=== PATIENT | male | born 1985 | race African-American/Black ===

== ENCOUNTER 2017-11-03 20:35 | Emergency (ER) | payer OTHER ==
[~2017-11-03] VITALS: Ht 170.2 cm; Wt 100.0 kg
[2017-11-03 20:52] VITALS: BP 157/82; PULSE 88; RESP 22; TEMP 98.6; O2SAT 96
[2017-11-03] MEDS ORDERED: methylPREDNISolone SOD SUCC 125 MG/2 ML VIAL IV PUSH ONE (21:30)
[2017-11-03] MEDS ORDERED: SODIUM CHLORIDE 0.9% FLUSH 10 ML FLUSH IVF PRN (21:30)
--- NOTE | 2017-11-03 21:30 | PD ---
HPI Chief Complaint: Respiratory Symptoms Time Seen by Provider: 21:09 Travel History International Travel<30 days: No Contact w/Intl Traveler<30days: No Traveled to known affect area: No History of Present Illness HPI 32 year old male presents to the emergency department for evaluation of chest tightness, SOB that started a couple of hours ago. Patient states he has history of asthma, but states his asthma is "atypical and occurs once every 7 years". Patient states he has not had these symptoms in approximately 7 years. Patient denies any other medical problems and takes no other medications. He states he does not currently have an albuterol inhaler. Patient denies any fevers, chills. No abdominal pain, nausea, vomiting, diarrhea. He denies any recent surgery or travel. No hemoptysis. No leg edema. No history of DVT or PE. No exacerbating or alleviating factors. Moderate severity. PFSH Past Medical History Asthma: Yes Tetanus Vaccination: < 5 Years Influenza Vaccination: No Past Surgical History Surgical History: No Previous Surgery Social History Alcohol Use: No Tobacco Use: No Substance Use: No Allergies-Medications (Allergen,Severity, Reaction): Coded Allergies: No Known Allergies (Unverified , 11/03/17) Reported Meds & Prescriptions Reported Meds & Active Scripts Active No Active Prescriptions or Reported Medications Review of Systems Except as stated in HPI: all other systems reviewed are Neg Physical Exam Narrative GENERAL: Well developed, well nourished male patient, ambulatory and in no acute distress. Afebrile. SKIN: Warm and dry. HEAD: Normocephalic. Atraumatic. EYES: No scleral icterus. No injection or drainage. NECK: Supple, trachea midline. No JVD or lymphadenopathy. CARDIOVASCULAR: Regular rate and rhythm without murmurs, gallops, or rubs. RESPIRATORY: Breath sounds equal bilaterally. No accessory muscle use. Lung sounds diminished throughout. GASTROINTESTINAL: Abdomen soft, non-tender, nondistended. MUSCULOSKELETAL: No cyanosis, or edema. BACK: Nontender without obvious deformity. No CVA tenderness. Data Data Last Documented VS Vital Signs Date Time Temp Pulse Resp B/P (MAP) Pulse Ox O2 Delivery O2 Flow Rate FiO2 11/03/17 21:45 99 Nasal Cannula 2.00 11/03/17 21:44 81 16 11/03/17 20:52 98.6 Orders Orders Complete Blood Count With Diff (11/03/17 21:17) Basic Metabolic Panel (Bmp) (11/03/17 21:17) Magnesium (Mg) (11/03/17 21:17) Ckmb (Isoenzyme) Profile (11/03/17 21:17) Troponin I (11/03/17 21:17) Iv Access Insert/Monitor (11/03/17 21:17) Electrocardiogram (11/03/17 21:17) Ecg Monitoring (11/03/17:) Oximetry (11/03/17 21:) Oxygen Administration (11/03/17 21:17) Chest, Single Ap (11/03/17:17) Sodium Chloride 0.9% Flush (Ns Flush) (11/03/17 21:30) Methylprednisolone So Succ Inj (Solumedr (11/03/17 21:30) Albuterol-Ipratropium Neb (Duoneb Neb) (11/03/17 21:30) CKMB (11/03/17 21:40) CKMB% (11/03/17 21:40) Labs Laboratory Tests Test 11/03/17 21:40 White Blood Count 8.8 TH/MM3 Red Blood Count 5.08 MIL/MM3 Hemoglobin 14.2 GM/DL Hematocrit 40.7 % Mean Corpuscular Volume 80.1 FL Mean Corpuscular Hemoglobin 27.9 PG Mean Corpuscular Hemoglobin Concent 34.8 % Red Cell Distribution Width 12.5 % Platelet Count 361 TH/MM3 Mean Platelet Volume 9.3 FL Neutrophils (%) (Auto) 40.5 % Lymphocytes (%) (Auto) 43.1 % Monocytes (%) (Auto) 7.3 % Eosinophils (%) (Auto) 8.4 % Basophils (%) (Auto) 0.7 % Neutrophils # (Auto) 3.6 TH/MM3 Lymphocytes # (Auto) 3.8 TH/MM3 Monocytes # (Auto) 0.6 TH/MM3 Eosinophils # (Auto) 0.7 TH/MM3 Basophils # (Auto) 0.1 TH/MM3 CBC Comment DIFF FINAL Differential Comment Blood Urea Nitrogen 7 MG/DL Creatinine 1.24 MG/DL Random Glucose 252 MG/DL Calcium Level 8.5 MG/DL Magnesium Level 1.7 MG/DL Sodium Level 137 MEQ/L Potassium Level 3.8 MEQ/L Chloride Level 102 MEQ/L Carbon Dioxide Level 23.9 MEQ/L Anion Gap 11 MEQ/L Estimat Glomerular Filtration Rate 82 ML/MIN Total Creatine Kinase 152 U/L Creatine Kinase MB 0.9 NG/ML Troponin I 0.02 NG/ML MDM Medical Decision Making Medical Screen Exam Complete: Yes Emergency Medical Condition: Yes Medical Record Reviewed: Yes Interpretation(s) chest x-ray - CONCLUSION: No acute disease. Differential Diagnosis asthma exacerbation vs. pneumonia vs. ACS Narrative Course 32 year old male presents to the emergency department for evaluation of shortness of breath, chest tightness for a few hours. EKG, CBC, BMP, Magnesium , CK, Troponin, chest x-ray are ordered and pending. Patient is given duoneb x3 , solumedrol 125 mg IV. EKG shows SR, HR 62, no acute ST changes. CBC shows no acute abnormalities. BMP shows hyperglycemia of 252, no acute abnormalities. CK is 152. Troponin is 0.02. Magnesium is 1.7. Chest x-ray shows no acute disease. Upon re-evaluation, patient states he is feeling much better and chest tightness is gone. Patient will be discharged with a RX for albuterol inhaler and prednisone. He verbalizes agreement and understanding. Diagnosis Primary Impression: Asthma exacerbation Qualified Codes: J45.21 - Mild intermittent asthma with (acute) exacerbation Referrals: Primary Care Physician call for appointment Patient Instructions: Asthma (ED), General Instructions Additional Instructions: Use albuterol inhaler as directed as needed for SOB/wheezing. Take prednisone as directed. Start this tomorrow. Follow up with your primary care physician. Return to the emergency department for any acute, worsening of symptoms. Med/Other Pt SpecificInfo: Prescription(s) given Scripts Prednisone (Prednisone) 20 Mg Tab 40 MG PO DAILY for 4 Days, #8 TAB 0 Refills Prov: Ladan Arce 11/03/17 Albuterol 18 GM Inh (Ventolin Hfa 18 GM Inh) 90 Mcg/Act Aer 1 PUFF INH Q4H Y for SHORTNESS OF BREATH, #1 INHALER 0 Refills Prov: Ladan Arce 11/03/17 Disposition: 01 DISCHARGE HOME Condition: Stable Ladan Arce Nov 03, 2017 21:30
[2017-11-03 21:44] VITALS: PULSE 81; RESP 16; O2SAT 97
[2017-11-03] MEDS: RESP: ALBUTEROL 2.5 MG/IPRATROPIUM 0.5 MG NEB (SCH) INH (21:56)
--- NOTE | 2017-11-03 22:13 | RADRPT ---
EXAM DATE/TIME: 11/03/2017 21:28 [facility] COMPARISON: No previous studies available for comparison. INDICATIONS : Chest tightness and shortness of breath. MEDICAL HISTORY : Asthma. SURGICAL HISTORY : None. ENCOUNTER: Initial ACUITY: 1 day PAIN SCORE: 0/10 LOCATION: Bilateral chest FINDINGS: A single view of the chest demonstrates the lungs to be symmetrically aerated without evidence of mas s, infiltrate or effusion. The cardiomediastinal contours are unremarkable. Osseous structures are intact. CONCLUSION: No acute disease. Luiz Nath MD on November 03, 2017 at 22:10 Board Certified Radiologist. This report was verified electronically.
[2017-11-03 22:25] LABS: AUTOMATED NEUTROPHIL # 3.6 TH/MM3 (1.8-7.7); BASOPHIL # 0.1 TH/MM3 (0-0.2); BASOPHIL % 0.7 % (0.0-2.0); EOSINOPHIL # 0.7 TH/MM3 (0-0.4); EOSINOPHIL % 8.4 % (0.0-4.0); HEMATOCRIT 40.7 % (39.0-51.0); HEMOGLOBIN 14.2 GM/DL (13.0-17.0); LYMPH % 43.1 % (9.0-44.0); LYMPHOCYTE # 3.8 TH/MM3 (1.0-4.8); MEAN CELL VOLUME 80.1 FL (80.0-100.0); MEAN CORPUSCULAR HEMOGLOBIN 27.9 PG (27.0-34.0); MEAN CORPUSCULAR HGB CONC 34.8 % (32.0-36.0); MEAN PLATELET VOLUME 9.3 FL (7.0-11.0); MONO % 7.3 % (0.0-8.0); MONOCYTE # 0.6 TH/MM3 (0-0.9); NEUT % 40.5 % (16.0-70.0); PLATELET COUNT 361 TH/MM3 (150-450); RED BLOOD COUNT 5.08 MIL/MM3 (4.50-5.90); RED CELL DISTRIBUTION WIDTH 12.5 % (11.6-17.2); WHITE BLOOD COUNT 8.8 TH/MM3 (4.0-11.0)
--- NOTE | 2017-11-03 22:35 | PD ---
Physical Exam Narrative I, Dr. Rosenbaum, have reviewed the advance practice practitioner's documentation and am in agreement, met with the patient face to face, made the diagnosis, and the medical decision making was done by me. *My assessment and Findings: Asthma exacerbation vs. pneumonia 32yo M with PMH of asthma here with sob for a few hours. Feels like his asthma. Labs reviewed, no leukocytosis. H/H normal. Glucose mildly elevated at 252. Troponin negative. CXR: Negative. Pt given methylprednisolone and duonebs x3. Pt reevaluated at bedside and is feeling much better. Pt ambulating in the ED without any sob and wants to go home. Lungs are clear. Return precautions given. Data Data Last Documented VS Vital Signs Date Time Temp Pulse Resp B/P (MAP) Pulse Ox O2 Delivery O2 Flow Rate FiO2 11/03/17 21:45 99 Nasal Cannula 2.00 11/03/17 21:44 81 16 11/03/17 20:52 98.6 Orders Orders Complete Blood Count With Diff (11/03/17 21:17) Basic Metabolic Panel (Bmp) (11/03/17 21:17) Magnesium (Mg) (11/03/17 21:17) Ckmb (Isoenzyme) Profile (11/03/17 21:17) Troponin I (11/03/17 21:17) Iv Access Insert/Monitor (11/03/17 21:17) Electrocardiogram (11/03/17 21:17) Ecg Monitoring (11/03/17 21:17) Oximetry (11/03/17 21:17) Oxygen Administration (11/03/17 21:17) Chest, Single Ap (11/03/17 21:17) Sodium Chloride 0.9% Flush (Ns Flush) (11/03/17 21:30) Methylprednisolone So Succ Inj (Solumedr (11/03/17 21:30) Albuterol-Ipratropium Neb (Duoneb Neb) (11/03/17 21:30) CKMB (11/03/17 21:40) CKMB% (11/03/17 21:40) Labs Laboratory Tests Test 11/03/17 21:40 White Blood Count 8.8 TH/MM3 Red Blood Count 5.08 MIL/MM3 Hemoglobin 14.2 GM/DL Hematocrit 40.7 % Mean Corpuscular Volume 80.1 FL Mean Corpuscular Hemoglobin 27.9 PG Mean Corpuscular Hemoglobin Concent 34.8 % Red Cell Distribution Width 12.5 % Platelet Count 361 TH/MM3 Mean Platelet Volume 9.3 FL Neutrophils (%) (Auto) 40.5 % Lymphocytes (%) (Auto) 43.1 % Monocytes (%) (Auto) 7.3 % Eosinophils (%) (Auto) 8.4 % Basophils (%) (Auto) 0.7 % Neutrophils # (Auto) 3.6 TH/MM3 Lymphocytes # (Auto) 3.8 TH/MM3 Monocytes # (Auto) 0.6 TH/MM3 Eosinophils # (Auto) 0.7 TH/MM3 Basophils # (Auto) 0.1 TH/MM3 CBC Comment DIFF FINAL Differential Comment Blood Urea Nitrogen 7 MG/DL Creatinine 1.24 MG/DL Random Glucose 252 MG/DL Calcium Level 8.5 MG/DL Magnesium Level 1.7 MG/DL Sodium Level 137 MEQ/L Potassium Level 3.8 MEQ/L Chloride Level 102 MEQ/L Carbon Dioxide Level 23.9 MEQ/L Anion Gap 11 MEQ/L Estimat Glomerular Filtration Rate 82 ML/MIN Total Creatine Kinase 152 U/L Creatine Kinase MB 0.9 NG/ML Troponin I 0.02 NG/ML [facility] Supervised Visit with LOIDA: Yes Interpretation(s) EKG: NSR 67bpm. Normal axis. No ST segment elevation or depression. TWI III. Diagnosis Primary Impression: Asthma exacerbation Qualified Codes: J45.21 - Mild intermittent asthma with (acute) exacerbation Scripts Albuterol 18 GM Inh (Ventolin Hfa 18 GM Inh) 90 Mcg/Act Aer 2 PUFF INH Q4H Y for SHORTNESS OF BREATH, #1 INHALER 0 Refills Prov: Sari Rosenbaum DO 11/04/17 Prednisone (Prednisone) 20 Mg Tab 40 MG PO DAILY for 4 Days, #8 TAB 0 Refills Prov: Ladan Arce 11/03/17 Sari Rosenbaum DO Nov 03, 2017 22:35
[2017-11-03 22:36] LABS: BICARBONATE 23.9 MEQ/L (21.0-32.0); BLOOD UREA NITROGEN 7 MG/DL (7-18); CALCIUM 8.5 MG/DL (8.5-10.1); CHLORIDE 102 MEQ/L (98-107); CREATININE 1.24 MG/DL (0.60-1.30); GLOMERULAR FILTRATION RATE 82 ML/MIN (>89); GLUCOSE,RANDOM 252 MG/DL (74-106); MAGNESIUM 1.7 MG/DL (1.5-2.5); SODIUM (NA) 137 MEQ/L (136-145)
[2017-11-03 22:39] LABS: TROPONIN I 0.02 NG/ML (0.02-0.05)
[2017-11-03] MEDS ORDERED: VENTAER INH (22:57)
[2017-11-03] MEDS ORDERED: PRED20 PO (22:57)
[2017-11-04] MEDS ORDERED: VENTAER INH (00:32)
--- NOTE | 2017-11-04 10:12 | EKG ---
Date Performed: 11/03/2017 Time Performed: 21:52:36 PTAGE: 32 years EKG: Sinus rhythm WITH SINUS ARRHYTHMIA Probable early repolarization NORMAL ECG NO PREVIOUS TRACING DOCTOR: Cristo Chaves Interpretating Date/Time 11/04/2017 10:10:57
== END 2017-11-04 01:03 | disposition home or self-care (01) ==
LOC: NEPC 20:35
DX: J45.901 Unspecified asthma with (acute) exacerbation (principal); R73.9 Hyperglycemia, unspecified; I49.9 Cardiac arrhythmia, unspecified
CPT/HCPCS: 71045; 80048; 82550; 82552; 83735; 84484; 85025; 93005; 94640; 94664; 96374; 99285; J2930